=== PATIENT | male | born 1995 | race Caucasian/White ===

== ENCOUNTER 2023-12-27 04:31 | Emergency (ER) | payer MEDICAID, SELFPAY ==
[2023-12-27 04:34] VITALS: PULSE 86; RESP 18; O2SAT 96; BMI 19.3
[2023-12-27 04:39] VITALS: BP 119/79; PULSE 62; RESP 17; TEMP 36.4; O2SAT 98
--- NOTE | 2023-12-27 04:47 | PC.NURSE ---
PT WAS PLACED IN ROOM 18 FOR SEIZURE LIKE ACTIVITY. PATIENT APPEARED TO HAVE A SEIZURE AT 0443 THAT LASTED APPROX 2MINS. PROVIDER JAYLENE WAS NOTIFIED.
--- NOTE | 2023-12-27 04:51 | PD.EDRME ---
Rapid Medical Screening Exam RME Arrival date/time: 12/27/23 04:31 Chief Complaint: Seizure Time Seen by Provider: 12/27/23 04:40 Vital signs: Vital Signs Temperature 97.6 F 12/27/23 04:39 Pulse Rate 62 12/27/23 04:39 Respiratory Rate 17 12/27/23 04:39 Blood Pressure 119/79 12/27/23 04:39 Pulse Oximetry (%) 98 12/27/23 04:39 Oxygen Delivery Method Nasal Cannula 12/27/23 04:39 Oxygen Flow Rate 4 12/27/23 04:39 Vital signs reviewed by provider: Yes RME Narrative: 28-year-old with history of seizure disorder with reported seizure at home. On arrival to the emergency department the patient is awake looking around the room and talking to EMS. Labs have been ordered. The patient is placed on seizure precautions and a board-certified emergency medicine physician will do a next evaluation with final disposition for this patient.
[2023-12-27] MEDS: LORazepam 2 MG/ML VIAL IVP (05:00)
[2023-12-27 05:20] LABS: Basophils # (Auto) 0.1 Thou/mm3 (0.0-0.2); Basophils % (Auto) 1 % (0-2.5); Eosinophils # (Auto) 0.1 Thou/mm3 (0.0-0.5); Eosinophils % (Auto) 3 % (0-10); Hematocrit 41.4 % (41.0-53.0); Hemoglobin 13.8 g/dL (13.5-16.0); Immature Granulocytes % (Auto) 0 % (0-0); Immature Granulocytes Auto 0.02 Thou/mm3 (0.00-0.00); Lymphocytes # (Auto) 1.5 Thou/mm3 (1.0-4.8); Lymphocytes % (Auto) 26 % (10-50); Mean Corpuscular HGB Conc 33.3 g/dl (31.0-37.0); Mean Corpuscular Hemoglobin 30.3 pg (25.0-35.0); Mean Corpuscular Volume 91 fL (80-100); Monocytes # (Auto) 0.4 Thou/mm3 (0.0-0.8); Monocytes % (Auto) 8 % (0-12); Neutrophils # (Auto) 3.6 Thou/mm3 (1.8-7.7); Neutrophils % (Auto) 62 % (37-80); Nucleated Red Blood Cell % 0 /100 WBC (0); Platelet Count 230 Thou/mm3 (140-440); RDW Standard Deviation 47.8 fL (35.1-43.9); Red Blood Count 4.55 Miln/mm3 (4.50-5.90); White Blood Count 5.7 Thou/mm3 (3.8-10.6)
[2023-12-27] MEDS: ONDANSETRON INJ 2 MG/ML INJ 2 ML 4 MG IV (05:41)
[2023-12-27 05:45] LABS: Alanine Aminotransferase < 7 U/L (10-49); Albumin, Serum 4.4 gm/dL (3.5-5.0); Alkaline Phosphatase 86 U/L (46-116); Anion Gap 6 (7-16); Aspartate Amino Transferase 18 U/L (0-34); BUN/Creatinine Ratio 11 Ratio (12-20); Bilirubin,Total 0.3 mg/dL (0.3-1.2); Blood Urea Nitrogen 9 mg/dL (9-23); Calcium 9.3 mg/dL (8.3-10.6); Calcium (Corrected) 9.3 mg/dL (8.5-10.1); Carbon Dioxide 26.4 mMol/L (20.0-31.0); Chloride 108 mMol/L (98-107); Creatinine (Component) 0.8 mg/dL (0.6-1.3); Estimated Creatinine Clearance 106.8 mL/min (>60); Globulin 2.2 gm/dL (2.3-3.5); Glucose 105 mg/dL (74-106); Magnesium 1.8 mg/dL (1.6-2.6); Osmolality,Calculated 278 (275-295); Phosphorous 2.9 mg/dL (2.4-5.1); Potassium 3.7 mMol/L (3.4-5.1); Sodium 140 mMol/L (136-145); Total Protein 6.6 gm/dL (5.7-8.2); eGFR > 60 See Note
--- NOTE | 2023-12-27 05:52 | PC.NURSE ---
PATIENT AND MOTHER WANTED TO SIGN AMA DUE TO WANTING DRIVE DOWN TO [facility] TO SEE NEUROLOGIST. PATIENTS MOTHER WAS UPSET DUE TO FEELING THAT PROVIDER WAS NOT PROVIDING EMPATHIC CARE. PROVIDER AND CHARGE NURSE WAS NOTIFIED.
== END 2023-12-27 05:55 | disposition left against medical advice (07) ==
LOC: SERX 05:51
PROVIDERS: Emergency Provider Emergency Medicine
DX: R56.9 Unspecified convulsions (principal); Z53.29 Procedure and treatment not carried out because of patient's decision for other reasons
CPT/HCPCS: 36415; 80053; 80307; 81001; 83735; 84100; 85025; 96374; 99281; J2060; J2405

== ENCOUNTER 2024-01-14 03:18 | Emergency (ER) | payer MEDICAID, SELFPAY ==
[2024-01-14] VITALS (8 sets, daily range): BP systolic 85–121; BP diastolic 48–78; PULSE 62–79; RESP 16–36; TEMP 37.1; O2SAT 92–97; BMI 20.9; BMI 19.3
[2024-01-14 04:35] LABS: Collection Type, Urine Clean Catch; Squamous Epithelial Cell,Urine 0 /hpf (0-5)
[2024-01-14 04:39] LABS: Bilirubin,Urine Negative (Negative); Blood,Urine Negative (Negative); Clarity,Urine Clear (Clear/Hazy); Color,Urine Lt-Yellow (Lt Yel-Yel); Culture Indicated,Urine Not Indicated; Glucose, Urine Negative (Negative); Ketones,Urine Negative (Negative); Leukocyte Esterase,Urine Negative (Negative); Nitrite,Urine Negative (Negative); PH,Urine 6.5 (5.0-7.0); Protein,Urine Negative (Neg - Trace); RBC,Urine 3 /hpf (0-3); Specific Gravity,Urine 1.011 (1.001-1.035); Urobilinogen,Urine Negative mg/dL (0.0-1.0); WBC,Urine < 1 /hpf (0-5)
--- NOTE | 2024-01-14 04:41 | EDRME_ITS ---
Rapid Medical Screening Exam RME Arrival date/time: 01/14/24 03:18 Chief Complaint: Seizure Time Seen by Provider: 01/14/24 04:42 Vital signs: Vital Signs Temperature 98.7 F 01/14/24 03:20 Pulse Rate 79 01/14/24 03:20 Respiratory Rate 17 01/14/24 03:20 Blood Pressure 115/71 01/14/24 03:20 Pulse Oximetry (%) 95 01/14/24 03:20 Oxygen Delivery Method Room Air 01/14/24 03:20 Vital signs reviewed by provider: Yes RME Narrative: 28yo male with a history of seizures presents to the ED for seizures. Family member at bedside states the patient had 5 seizures, with the first starting at 0230. Family member notes they didn't have any emergency medications, so they had him brought in for evaluation. Patient is currently resting comfortably. O rders placed.
[2024-01-14 06:02] LABS: Basophils % (Auto) 0 % (0-2.5); Eosinophils # (Auto) 0.1 Thou/mm3 (0.0-0.5); Eosinophils % (Auto) 1 % (0-10); Hematocrit 38.6 % (41.0-53.0); Hemoglobin 12.9 g/dL (13.5-16.0); Immature Granulocytes % (Auto) 0 % (0-0); Immature Granulocytes Auto 0.03 Thou/mm3 (0.00-0.00); Lymphocytes # (Auto) 1.4 Thou/mm3 (1.0-4.8); Lymphocytes % (Auto) 15 % (10-50); Mean Corpuscular HGB Conc 33.4 g/dl (31.0-37.0); Mean Corpuscular Hemoglobin 30.6 pg (25.0-35.0); Mean Corpuscular Volume 92 fL (80-100); Monocytes # (Auto) 0.7 Thou/mm3 (0.0-0.8); Monocytes % (Auto) 8 % (0-12); Neutrophils # (Auto) 7.3 Thou/mm3 (1.8-7.7); Neutrophils % (Auto) 76 % (37-80); Nucleated Red Blood Cell % 0 /100 WBC (0); Platelet Count 198 Thou/mm3 (140-440); RDW Standard Deviation 47.3 fL (35.1-43.9); Red Blood Count 4.21 Miln/mm3 (4.50-5.90); White Blood Count 9.6 Thou/mm3 (3.8-10.6)
[2024-01-14 06:25] LABS: Amphetamine/Methamp Scrn,U Negative (Negative); Benzodiazepines Screen,Urine Positive (Negative); Benzoylecgonine Screen, Ur Negative (Negative); Fentanyl Screen,Urine Negative (Negative); Opiate Screen,Urine Negative (Negative); THC Screen,Urine Positive (Negative)
[2024-01-14 06:30] LABS: Alanine Aminotransferase < 7 U/L (10-49); Albumin, Serum 4.2 gm/dL (3.5-5.0); Albumin/Globulin Ratio 1.9 (1.2-2.2); Alkaline Phosphatase 84 U/L (46-116); Anion Gap 5 (7-16); Aspartate Amino Transferase 19 U/L (0-34); BUN/Creatinine Ratio 10 Ratio (12-20); Bilirubin,Total 0.2 mg/dL (0.3-1.2); Blood Urea Nitrogen 8 mg/dL (9-23); Carbon Dioxide 28.8 mMol/L (20.0-31.0); Chloride 107 mMol/L (98-107); Creatinine (Component) 0.8 mg/dL (0.6-1.3); Estimated Creatinine Clearance 106.8 mL/min (>60); Globulin 2.2 gm/dL (2.3-3.5); Glucose 131 mg/dL (74-106); Osmolality,Calculated 281 (275-295); Potassium 3.5 mMol/L (3.4-5.1); Sodium 141 mMol/L (136-145); Total Protein 6.4 gm/dL (5.7-8.2); eGFR > 60 See Note
[2024-01-14] MEDS: LORazepam 2 MG/ML VIAL IVP (06:36)
--- NOTE | 2024-01-14 06:41 | PD.EDSEIZ ---
ED Seizures RME/HPI General Chief Complaint: Seizure Stated Complaint: SEIZURE Time Seen by Provider: 01/14/24 04:42 Arrival date/time: 01/14/24 03:18 Limitations: no limitations RME / HPI RME / HPI Narrative: 28yo male with a history of seizures presents to the ED for seizures. Family member at bedside states the patient had 5 seizures, with the first starting at 0230. Family member notes they didn't have any emergency medications, so they had him brought in for evaluation. Patient is currently resting comfortably. Orders placed. DR. MCKAYLA BOLDEN ED EVALUATION: 28 year old male with known history of seizures, multiple ED visits for seizures, and multiple brain surgeries including VNS placement presents to the ED BIBA from home for seizure today. Per RN, medics reported witnessed the seizures and described patient to have multiple tonic-clonic seizures. While in the ED, patients step father states he ran out of his emergency medication for seizures 2 days ago and is pending refill to be approved. Per patients mother, patient is currently on Xcopri, Briviact, Vimpat, and Fycompa. States he is compliant with his medications and denies missing a dose. Additionally reported patient at baseline has cluster seizures every few days , last occurring yesterday. No recent illness, fevers, chills, cough, URI symptoms. No falls/injuries reported. Mother adds the patient is pending insurance approval for admission at [facility] for changes in seizure medications. Neurologist: Dr. Mejia at [facility] Related Data Home Medications ?Medication ?Instructions ?Recorded ?Confirmed cenobamate 200 mg tablet (Xcopri) 200 mg PO HS 06/26/20 08/06/23 brivaracetam 100 mg tablet 200 mg PO BID 05/21/22 08/06/23 (Briviact) diazepam 20 mg/2 spray (10 mg/0.1 20 mg intranasal Q4HR PRN Seizures 07/11/22 08/06/23 mL x 2) nasal spray (Valtoco) escitalopram oxalate 5 mg tablet 5 mg PO DAILY 07/11/22 08/06/23 (Lexapro) lacosamide 100 mg tablet (Vimpat) 250 mg PO BID 11/02/22 08/06/23 Previous Rx's ?Medication ?Instructions ?Recorded diazepam 10 mg/spray (0.1 mL) 10 mg (0.1 mL) intranasal Q4H PRN 08/06/23 nasal spray (Valtoco) seizures #2 sprays Allergies Allergy/AdvReac Type Severity Reaction Status Date / Time No Known Allergies Allergy Verified 11/01/22 23:56 Review of Systems Review of Systems Narrative Review of Systems: GEN: No fever, no chills, no weight loss EYES: No discharge, no visual changes, no pain HEENT: No ear pain, no congestion, no sore throat PULM: No shortness of breath, no cough, no congestion CV: No chest pain, no dyspnea on exertion, no palpitations GI: No nausea, no vomiting, no diarrhea, no pain, no constipation : No frequency, no urgency, no dysuria MUSC/SKEL: No joint pain, no back pain SKIN: No rash NEURO: No weakness, no headache, +seizures Past Medical History Past Medical History NEUROLOGIC: Positive Neurological Disorders, Seizures and Epilepsy Family History FAMILY HISTORY: Negative Family Psychiatric Problems, Family Respiratory Disorders, Family Cardiac Disorders, Family Gastrointestinal Problems, Family Cancer, Family Surgery or Family Anesthesia Reaction Surgical History SURGICAL: Positive Eye Surgery, Tonsillectomy and Neurologic Surgery Social History SMOKING STATUS: Never smoker SUBSTANCE USE: does not use ED Exam General Limitations: Present no limitations General appearance: Present other (shortness of breath Acute exacerbation of COPD ) Head Head exam: Present atraumatic, normocephalic and normal inspection Eye Eye exam: Present normal appearance, PERRL and EOMI ENT ENT exam: Present normal exam, normal oropharynx and mucous membranes moist Neck Neck exam: Present normal inspection, full ROM and trachea midline Chest Chest inspection: Present normal inspection and symmetric chest wall rise Respiratory Respiratory exam: Present normal lung sounds bilaterally Cardiovascular Cardiovascular exam: Present normal rhythm (regular rate on reassessment at 08:48 am ), tachycardia (On initial examination ) and normal heart sounds Abdominal Exam Abdominal exam: Present soft and normal bowel sounds Extremities Exam Extremities exam: Present normal inspection and full ROM Back Exam Back exam: Present normal inspection and full ROM Neurological Exam Neurological exam: Present CN II-XII intact and other (Postictal, confused, awake, responds to commands) Psychiatric Psychiatric exam: Present normal affect and normal mood Skin Skin exam: Present warm, dry, intact and normal color Course Quality Measures none Orders Category Date Time Status IV [Insert IV] NOW Care 01/14/24 04:42 Completed Seizure precautions ONCE Care 01/14/24 04:42 Completed Discharge Routine Discharge 01/14/24 08:47 Active CBC Stat Lab 01/14/24 04:30 Completed CMP [Comprehensive Metabolic Panel] Stat Lab 01/14/24 04:30 Completed Drug Screen,Urine Stat Lab 01/14/24 05:30 Completed Urinalysis, C/S if Indicated Stat Lab 01/14/24 04:12 Completed LORazepam [Ativan Inj] Med 01/14/24 06:32 Discontinued 2 mg .ROUTE .STK-MED ONE LORazepam [Ativan Inj] Med 01/14/24 06:33 Discontinued 2 mg IVP X1 ONE levETIRAcetam INJ [Keppra Inj] Med 01/14/24 06:47 Discontinued 1,000 mg IVP X1 ONE Reevaluation(s) Reevaluation #1: Patient had a tonic-clonic seizure lasting 2 minutes, given 2mg of Ativan. At this time patient placed in ED observation care, pending reassessment. Time: 06:32 Reevaluation #2: On reassessment the patient is AOx3, no longer postictal. He is requesting to go home. We reviewed all the results, analysis, and treatment plans. Patient is amenable to discharge. Strict return precautions were outlined. Patient was discharged in stable condition. ED observation care ended at this time. Time: 08:48 Vital Signs Vital signs: Vital Signs Temperature 98.7 F 01/14/24 03:20 Pulse Rate 79 01/14/24 03:20 Respiratory Rate 17 01/14/24 03:20 Blood Pressure 115/71 01/14/24 03:20 Pulse Oximetry (%) 95 01/14/24 03:20 Oxygen Delivery Method Room Air 01/14/24 03:20 Pulse ox is 95% on room air which is adequate. Seizure MDM Narrative MDM Narrative:: Hannah Valdez am scribing for and in the presence of Dr. Nye. Patient data External records reviewed:: [facility] previous records (I reviewed ED visit on 12/27/2023 for seizure ) and EMS form Clinical information provided by:: patient, EMS and parent (Step father and mother ) Social determinants that could affect healthcare access:: substance use (Marijuana ) Patient has the following chronic illnesses:: seizures, multiple ED visits for seizures, and multiple brain surgeries including VNS placement How is presenting disease/condition affected by chronic disease/condition?: caused by Evaluation data The following diagnostics were reviewed and interpreted by me:: lab results Lab and/or radiology exams considered but not ordered:: None Interpretation Summary: Electrolytes WNL Utox + for marijuana Medications / Prescriptions Medications or Prescriptions considered but not ordered:: None Medication administrations:: Medication Administration History Discontinued Medications Levetiracetam (Levetiracetam Inj 100 Mg/Ml Vial 5ml) 1,000 mg IVP X1 ONE Stop: 01/14/24 06:48 Last Admin: 01/14/24 07:36 Dose: 1,000 mg Documented By: PRISCILLA Lorazepam (Lorazepam 2 Mg/Ml Vial) 2 mg IVP X1 ONE Stop: 01/14/24 06:34 Last Admin: 01/14/24 06:36 Dose: 2 mg Documented By: BUZZ Lorazepam (Lorazepam 2 Mg/Ml Vial) Confirm Administered Dose 2 mg .ROUTE .STK-MED ONE Stop: 01/14/24 06:33 Last Admin: 01/14/24 06:41 Dose: Not Given Documented By: BUZZ Non-Admin Reason: Override Medication See above Consultations Consultation(s) initiated? (list below): No Diagnosis Seizure Differential Diagnosis: intractable seizure disorder, focal seizure, generalized seizure, epileptic seizure and status epilepticus Most likely diagnosis given after review of the tests above:: Seizure Seizure disorder Admission Indicated Admission indicated?: not indicated Admission Request Was there a request for admission?: No Disposition Plan Disposition Plan: Discharge Discharge Attestation Discharge Attestation: The patient and all family members were given an opportunity to ask questions and understood the discharge instructions. Discharge instructions specifically effects, indications for sooner follow up or return to the emergency department, and the expected course of current diagnosis. Patient condition: Stable Discharge Plan Plan Patient Disposition: HOME (Self Care) Disposition Comment: Stable for discharge Patient condition on transfer: Stable Prescriptions/Referrals Prescriptions/Med Rec: No Action Xcopri 200 mg Tablet 200 mg PO HS Briviact 100 mg tablet 200 mg PO BID lacosamide [Vimpat] 100 mg Tablet 250 mg PO BID escitalopram oxalate [Lexapro] 5 mg tablet 5 mg PO DAILY Valtoco 20 mg/2 spray (10mg/0.1mL x2) spray,non-aerosol 20 mg INTRANASAL Q4HR PRN (Reason: Seizures) Valtoco 10 mg/spray (0.1 mL) spray,non-aerosol 10 mg intranasal Q4H PRN (Reason: seizures) Qty: 2 0RF Referrals: No Primary/Family,Physician [Primary Care Provider] - In 1 week Problem List Clinical Impression: Seizure disorder, Seizure Patient/Caregiver Discharge Instructions Discharge Activity: activity as tolerated Education Materials: Discharge Instructions for Epilepsy, ED Seizure, Recurrent (Adult) Additional Instructions: Please return to the emergency department for any worsening or any further medical problems You should follow-up with your neurologist at [facility] to discuss your medications to see if they need to be changed or adjusted. Otherwise please follow-up with your primary care doctor within the next several days Print Language: Chinese Stand Alone Forms: Liza Award Info., Patient Portal Info Letter
[2024-01-14 07:29] LABS: Barbiturate Screen,Urine Negative (Negative)
--- NOTE | 2024-01-14 07:30 | PC.NURSE ---
PT RESTING W/EYES CLOSED, VSS ON TELE, DENIES ANY PAIN OR DISCOMFORT AT THIS TIME. DAD AT BEDSIDE ATTENTIVE TO PT, MAKE-SHIFT PADDING ON SIDE RAILS FOR SEIZURE PRECAUTIONS. CALL CHANG REMAINS IN REACH.
[2024-01-14] MEDS: levETIRAcetam INJ 100 MG/ML VIAL 5ML 1000 MG IVP (07:36)
== END 2024-01-14 08:58 | disposition home or self-care (01) ==
PROVIDERS: Emergency Medicine; Emergency Provider Emergency Medicine
DX: G40.909 Epilepsy, unspecified, not intractable, without status epilepticus (principal)
CPT/HCPCS: 36415; 80053; 80307; 81001; 85025; 96374; 96375; 99284; J1953; J2060

== ENCOUNTER 2024-02-16 04:23 | Emergency (ER) | payer MEDICAID, SELFPAY ==
[2024-02-16 04:28] VITALS: PULSE 95; RESP 15; O2SAT 96; BMI 19.6
--- NOTE | 2024-02-16 04:59 | EDNOTE_ITS ---
ED Seizures RME/HPI General Chief Complaint: Seizure Stated Complaint: SEIZURE Time Seen by Provider: 02/16/24 04:27 Arrival date/time: 02/16/24 04:23 RME / HPI RME / HPI Narrative: Dr. Nye?s Main ED Evaluation: 28yo male with a history of seizures BIBA from home presents to the ED for a chief complaint of seizures. Per patient's friend at bedside, he received a call from the patient's stating the patient had 3 seizures over the span of 30 minutes just [employer]. He states the patient is out of his emergency medications, so she called 911 to bring the patient in for evaluation. The friend states the patient does not have a follow-up appointment with his neurologist at [facility] until April. Patient denies any cough, fever, chills or any other associated symptoms. Denies any alcohol use. No known allergies. Related Data Home Medications ?Medication ?Instructions ?Recorded ?Confirmed cenobamate 200 mg tablet (Xcopri) 200 mg PO HS 06/26/20 08/06/23 brivaracetam 100 mg tablet 200 mg PO BID 05/21/22 08/06/23 (Briviact) diazepam 20 mg/2 spray (10 mg/0.1 20 mg intranasal Q4HR PRN Seizures 07/11/22 08/06/23 mL x 2) nasal spray (Valtoco) escitalopram oxalate 5 mg tablet 5 mg PO DAILY 07/11/22 08/06/23 (Lexapro) lacosamide 100 mg tablet (Vimpat) 250 mg PO BID 11/02/22 08/06/23 Previous Rx's ?Medication ?Instructions ?Recorded diazepam 10 mg/spray (0.1 mL) 10 mg (0.1 mL) intranasal Q4H PRN 08/06/23 nasal spray (Valtoco) seizures #2 sprays Allergies Allergy/AdvReac Type Severity Reaction Status Date / Time No Known Allergies Allergy Verified 11/01/22 23:56 Review of Systems Review of Systems Systems Reviewed: All systems reviewed, normal except as documented ED Exam Narrative Physical exam: GENERAL APPEARANCE: sleeping, but is easily arousable; unwilling to participate in exam; well-developed, well-nourished, no acute distress VITALS: All vitals were reviewed and the pulse ox is 96% on room air, which is normal according to my interpretation. HEENT: Normocephalic, atraumatic; pupils equal, round, reactive to light; EOMI; mucous membranes pink, moist; oropharynx clear NECK: Supple LUNGS: CTABL; no wheezes, no rales, no rhonchi HEART: Regular rate, regular rhythm; normal S1, S2; no murmurs ABDOMEN: non distended; normal BS; soft, no tenderness, no guarding, no rebound; no masses, no organomegaly, no hernia BACK: no CVA tenderness EXTREMITIES: atraumatic; no edema NEUROLOGIC: sleeping, but is easily arousable; cranial nerves II-XII grossly intact; no focal sensory or motor deficits PSYCHIATRIC: appropriate mood and affect SKIN: warm, dry, normal color; no rashes Course Quality Measures none Orders Category Date Time Status Monitoring Engineer Q4H START 00 Care 02/16/24 04:59 Active Continuous Pulse Oximetry NOW Care 02/16/24 04:59 Active Alcohol, Blood Medical Stat Lab 02/16/24 04:59 Ordered CBC Stat Lab 02/16/24 04:59 Ordered CK [Creatine Kinase] Stat Lab 02/16/24 04:59 Ordered CMP [Comprehensive Metabolic Panel] Stat Lab 02/16/24 04:59 Ordered Drug Screen,Urine Stat Lab 02/16/24 04:59 Ordered Lactate (Lactic Acid) Stat Lab 02/16/24 05:00 Ordered Magnesium Stat Lab 02/16/24 04:59 Ordered Urinalysis, C/S if Indicated Stat Lab 02/16/24 05:00 Ordered Seizure MDM Narrative MDM Narrative:: Scribe Attestation: 02/16/24 Martha Giraldo am scribing for and in the presence of Dr. Nye. Patient data External records reviewed:: [facility] previous records (Per chart review, patient has been seen here multiple times in the past for seizures.) Clinical information provided by:: patient and friend Social determinants that could affect healthcare access:: none Patient has the following chronic illnesses:: seizures How is presenting disease/condition affected by chronic disease/condition?: caused by Evaluation data The following diagnostics were reviewed and interpreted by me:: lab results Lab and/or radiology exams considered but not ordered:: none Interpretation Summary: Labs are pending at signout. Medications / Prescriptions Medications or Prescriptions considered but not ordered:: none Medication administrations:: see above, if any Consultations Consultation(s) initiated? (list below): No Diagnosis Seizure Differential Diagnosis: generalized seizure and other (partial seizure, pseudoseizure) Most likely diagnosis given after review of the tests above:: see below Admission Indicated Admission indicated?: not indicated Admission Request Was there a request for admission?: No Disposition Plan Disposition Plan: other (specify) (Signed out to Dr. Alarcon at 0600 pending labs and final disposition.) Discharge Plan Plan Disposition Comment: Stable at signout. Prescriptions/Referrals Prescriptions/Med Rec: No Action Xcopri 200 mg Tablet 200 mg PO HS Briviact 100 mg tablet 200 mg PO BID lacosamide [Vimpat] 100 mg Tablet 250 mg PO BID escitalopram oxalate [Lexapro] 5 mg tablet 5 mg PO DAILY Valtoco 20 mg/2 spray (10mg/0.1mL x2) spray,non-aerosol 20 mg INTRANASAL Q4HR PRN (Reason: Seizures) Valtoco 10 mg/spray (0.1 mL) spray,non-aerosol 10 mg intranasal Q4H PRN (Reason: seizures) Qty: 2 0RF Problem List Clinical Impression: Seizure Patient/Caregiver Discharge Instructions Print Language: Azeri
[2024-02-16 05:53] VITALS: BP 121/75; PULSE 67; RESP 16; O2SAT 96
[2024-02-16 05:55] VITALS: PULSE 68
--- NOTE | 2024-02-16 06:05 | EDNOTE_ITS ---
Emergency Room Addendum <Hannah Cee - Last Filed: 02/16/24 10:13> Addendum Narrative: 0600: Care assumed from Dr. Nye, the previous shift emergency physician. Past medical, surgical, social and family history reviewed. Vitals and home medications reviewed. I will assume the care of the patient at this time pending labs, reassessment, and final disposition. Please refer to the emergency department record for history and examination from initial visit.? EMS notes reviewed by me. Patient was given 4mg IM Versed by medics. Nursing notes reviewed by me. Vital signs reviewed by me. [place] medical records reviewed by me. Patient was last evaluated here on 01/14/2024 also for seizure. Per EMR review, patient has been evaluated here multiple times for seizure and is followed by neurologist Dr. Mejia at [facility]. I reviewed all diagnostic test results. My interpretation of the EKG is sinus rhythm (51 bpm) with nonspecific ST-T changes. Nik Alarcon MD My interpretation of the chest x-ray is no active disease. My review of the CT report is?ventricles are not enlarged, no gross hemorrhage. Blood tests and urine tests Discharge Instructions from Dr. Alarcon printed for you: 1. Since you requested being discharged and going home prior to consultation with our neurologist, you are being discharged. 2. Take all your medications, including all your seizure medications. 3. Call your neurologist's office today. And let them know what happened and ask for further instructions, including appointment as soon as possible. 4. See your primary care doctor on 02/16/2024 for recheck and further care. Ask to review all test results and official radiology reports, to make sure you receive all necessary follow-ups and monitoring. 5. Seek immediate medical care with another seizure or with any concerns. <Nik Alarcon MD - Last Filed: 02/16/24 10:39> Addendum Narrative: 0600: Care assumed from Dr. Nye, the previous shift emergency physician. Past medical, surgical, social and family history reviewed. Vitals and home medications reviewed. I will assume the care of the patient at this time pending labs, reassessment, and final disposition. Please refer to the emergency department record for history and examination from initial visit.? EMS notes reviewed by me. Patient was given 4mg IM Versed by medics. Nursing notes reviewed by me. Vital signs reviewed by me. [place] medical records reviewed by me. Patient was last evaluated here on 01/14/2024 also for seizure. Per EMR review, patient has been evaluated here multiple times for seizure and is followed by neurologist Dr. Mejia at [facility]. I reviewed all diagnostic test results. My interpretation of the EKG is sinus rhythm (51 bpm) with nonspecific ST-T changes. My interpretation of the chest x-ray is no acute findings. My review of the head CT report is no acute findings. Blood tests and urine tests unremarkable. At this point, diagnoses include recurrent seizure. Patient remained stable. Initiated consultation with our neurologist. Patient and father requested going home, do not want to wait for the neurology consultation. Discussed potential risks, including more seizures and even being fatal. They understand the risks but still want to go home prior to neurology consultation. Based on my best medical judgment, made decision no further evaluation or treatment indicated at this time. Patient understands and agrees to the discharge instructions customized and printed, see below. Discharge Instructions from Dr. Alarcon printed for you: 1. Since you requested being discharged and going home prior to consultation with our neurologist, you are being discharged. 2. Take all your medications, including all your seizure medications. 3. Call your neurologist's office today. And let them know what happened and ask for further instructions, including appointment as soon as possible. 4. See your primary care doctor on 02/16/2024 for recheck and further care. Ask to review all test results and official radiology reports, to make sure you receive all necessary follow-ups and monitoring. 5. Seek immediate medical care with another seizure or with any concerns. Nik Alarcon MD
[2024-02-16 06:15] VITALS: BP 119/80; PULSE 52; RESP 14; O2SAT 94
[2024-02-16 06:22] LABS: Lactate (Lactic Acid) 1.6 mMol/L (0.4-2.0)
--- NOTE | 2024-02-16 06:33 | XR_ITS ---
Examination: CT brain head without contrast. 2-D sagittal coronal reconstructions Date and time of exam:February 2024 0837 hours Comparison 11/02/2022 INDICATIONS: Onset seizures this morning, diagnosis seizures 20 years, seizure episodes 11/02/2022 CTDI: vol (mGy):52 DLP: (mGycm):1047 Technique: Multiple CT axial sections of the brain have been obtained, 5 mm slice thickness. Contrast has not been administered. 2-D sagittal, coronal reconstructions have been obtained Low dose protocols were performed. One or more of the following dose reduction techniques were used; automated exposure control, adjustment of the mA and/or KV according to patient size, use of iterative reconstruction technique. Findings: Massive artifacts secondary to the left craniotomy and multiple surgical clips and craniotomy plate The ventricles are not enlarged No gross midline shift Neural transmitter wires on the left also generate gross artifacts Major area of encephalomalacia in the left temporal lobe again noted IMPRESSION: Study is severely limited secondary to massive artifacts Ventricles are not enlarged No gross hemorrhage
--- NOTE | 2024-02-16 06:34 | EKG_ITS ---
[facility] Test Date: 2024-02-16 Pat Name: SHANICE BOX Department: Room: - Gender: Male Medical Data Entry Clerk: : 1995 Requested By: Nik Chase Order Number: [id number] Reading MD: Nik Chase Measurements Intervals [place] Rate: 47 P: 32 VT: 166 QRS: 31 QRSD: 97 T: 47 QT: 381 QTc: 340 Interpretive Statements SINUS BRADYCARDIA WITH SINUS ARRHYTHMIA No previous ECG available for comparison /store/S0/[id number].pdf
--- NOTE | 2024-02-16 06:34 | XR_ITS ---
Examination: AP chest single view Technique: AP portable upright chest single view Exam date and time: February 16, 2024 0653 hrs. Comparison December with 2022 Indications: Shortness of breath beginning today Findings: Normal heart size. Lungs are clear. The osseous structures are intact Impression: No active disease
[2024-02-16 06:46] LABS: Basophils % (Auto) 1 % (0-2.5); Eosinophils # (Auto) 0.2 Thou/mm3 (0.0-0.5); Eosinophils % (Auto) 2 % (0-10); Hematocrit 42.5 % (41.0-53.0); Hemoglobin 14.2 g/dL (13.5-16.0); Immature Granulocytes % (Auto) 0 % (0-0); Immature Granulocytes Auto 0.03 Thou/mm3 (0.00-0.00); Lymphocytes % (Auto) 15 % (10-50); Mean Corpuscular HGB Conc 33.4 g/dl (31.0-37.0); Mean Corpuscular Hemoglobin 30.1 pg (25.0-35.0); Mean Corpuscular Volume 90 fL (80-100); Monocytes # (Auto) 0.6 Thou/mm3 (0.0-0.8); Monocytes % (Auto) 8 % (0-12); Neutrophils # (Auto) 5.2 Thou/mm3 (1.8-7.7); Neutrophils % (Auto) 74 % (37-80); Nucleated Red Blood Cell % 0 /100 WBC (0); Platelet Count 222 Thou/mm3 (140-440); RDW Standard Deviation 46.9 fL (35.1-43.9); Red Blood Count 4.71 Miln/mm3 (4.50-5.90)
[2024-02-16 06:56] LABS: Alanine Aminotransferase < 7 U/L (10-49); Albumin, Serum 4.7 gm/dL (3.5-5.0); Albumin/Globulin Ratio 1.7 (1.2-2.2); Alcohol, Blood Medical < 3.0 mg/dL (0-10.0); Alkaline Phosphatase 86 U/L (46-116); Anion Gap 8 (7-16); Aspartate Amino Transferase 19 U/L (0-34); BUN/Creatinine Ratio 11 Ratio (12-20); Bilirubin,Total 0.3 mg/dL (0.3-1.2); Blood Urea Nitrogen 9 mg/dL (9-23); Calcium 9.5 mg/dL (8.3-10.6); Calcium (Corrected) 9.5 mg/dL (8.5-10.1); Chloride 108 mMol/L (98-107); Creatine Kinase 85 U/L (34-171); Creatinine (Component) 0.8 mg/dL (0.6-1.3); Globulin 2.7 gm/dL (2.3-3.5); Glucose 80 mg/dL (74-106); Magnesium 2.3 mg/dL (1.6-2.6); Osmolality,Calculated 282 (275-295); Potassium 3.9 mMol/L (3.4-5.1); Sodium 143 mMol/L (136-145); Total Protein 7.4 gm/dL (5.7-8.2); Troponin I 0.027 ng/mL (0.0-0.045); eGFR > 60 See Note
[2024-02-16 07:00] VITALS: BP 110/73; PULSE 60; RESP 12; O2SAT 95
[2024-02-16] MEDS: SODIUM CHLORIDE 0.9% 1000 ML 1,000 ML 999 ML IV (07:00)
[2024-02-16 08:00] LABS: Collection Type, Urine Clean Catch
[2024-02-16 08:31] LABS: Amphetamine/Methamp Scrn,U Negative (Negative); Barbiturate Screen,Urine Negative (Negative); Benzodiazepines Screen,Urine Positive (Negative); Benzoylecgonine Screen, Ur Negative (Negative); Fentanyl Screen,Urine Negative (Negative); Opiate Screen,Urine Negative (Negative); THC Screen,Urine Positive (Negative)
[2024-02-16 08:36] LABS: Bilirubin,Urine Negative (Negative); Blood,Urine Negative (Negative); Clarity,Urine Clear (Clear/Hazy); Color,Urine Colorless (Lt Yel-Yel); Culture Indicated,Urine Not Indicated; Glucose, Urine Negative (Negative); Ketones,Urine Negative (Negative); Leukocyte Esterase,Urine Negative (Negative); Nitrite,Urine Negative (Negative); PH,Urine 6.5 (5.0-7.0); Protein,Urine Trace (Neg - Trace); RBC,Urine 3 /hpf (0-3); Specific Gravity,Urine 1.015 (1.001-1.035); Squamous Epithelial Cell,Urine < 1 /hpf (0-5); Urobilinogen,Urine Negative mg/dL (0.0-1.0); WBC,Urine < 1 /hpf (0-5)
[2024-02-16 11:37] VITALS: BP 110/63; PULSE 63; RESP 16; TEMP 36.7; O2SAT 98
== END 2024-02-16 11:37 | disposition home or self-care (01) ==
PROVIDERS: Emergency Medicine; Emergency Provider Emergency Medicine; PCP Family Medicine
DX: R56.9 Unspecified convulsions (principal); R06.02 Shortness of breath; I49.8 Other specified cardiac arrhythmias
CPT/HCPCS: 36415; 70450; 71045; 80053; 80307; 80320; 81001; 82550; 83605; 83735; 84484; 85025; 93005; 96360; 96361; 99284; J7030; G0480